=== PATIENT | male | born 1960 | race Caucasian/White ===

== ENCOUNTER 2016-09-07 12:30 | Emergency (ER) | payer OTHER ==
[~2016-09-07] VITALS: Ht 185.4 cm; Wt 93.1 kg
[2016-09-07] MEDS ORDERED: PREDNISONE20 MG PO (17:15)
[2016-09-07] MEDS ORDERED: NORCO 5/3251 TABLET PO (17:15)
[2016-09-07] MEDS ORDERED: CIPRO500 MG PO (17:15)
[2016-09-07 17:39] VITALS: BP 138/76
== END 2016-09-07 18:03 | disposition home or self-care (01) ==
LOC: EME 12:30
DX: S09.90XA Unspecified injury of head, initial encounter (principal); W21.03XA Struck by baseball, initial encounter; Y93.64 Activity, baseball; Y92.838 Other recreation area as the place of occurrence of the external cause
CPT/HCPCS: 70450; 70486; 99281; 99285; J0744; J1885; J2060; J2405; J3010